=== PATIENT | female | born 2000 | race Caucasian/White ===

== ENCOUNTER 2025-05-19 12:37 | Outpatient (CLI) | payer BC, OTHER ==
[~2025-05-19 12:37] MED LIST: Iopamidol 370 76% 100 ML VIAL ONE
== END 2025-05-19 12:38 | disposition home or self-care (01) ==
LOC: CT 12:37
PROVIDERS: ATTEND Specialist
DX: R22.1 Localized swelling, mass and lump, neck (principal)
CPT/HCPCS: 70491; Q9967

== ENCOUNTER 2025-05-26 14:13 | Outpatient (CLI) | payer BC, OTHER | END 2025-05-26 14:14 | disposition home or self-care (01) | LOC: SCSMRI 14:13 | PROVIDERS: ATTEND Otolaryngology Plastic Surgery within the Head & Neck | DX: R22.1 Localized swelling, mass and lump, neck (principal); Q18.2 Other branchial cleft malformations | CPT/HCPCS: 70543 ==